=== PATIENT | male | born 1960 | race Two or more races ===

== ENCOUNTER 2018-06-09 14:33 | Emergency (ER) | payer MEDICAID ==
[~2018-06-09] VITALS: Ht 157.5 cm; Wt 69.0 kg
[2018-06-09 15:40] LABS: CLARITY URINE CLEAR (CLEAR); COLOR URINE DARK YELLOW (YELLOW); KETONES URINE NEGATIVE (NEGATIVE); LEUKOCYTE ESTERASE URINE NEGATIVE (NEGATIVE); NITRITE URINE NEGATIVE (NEGATIVE); OCCULT BLOOD URINE 2+ (NEGATIVE); PH URINE 6.5 (4.5-8.0); PROTEIN URINE 2+ (NEGATIVE); SPECIFIC GRAVITY URINE 1.025 (1.005-1.030)
[2018-06-09] MEDS ORDERED: SODIUM CHLORIDE 0.9% 1,000 ML IV ONE ×2 (17:13→21:30)
[2018-06-09 17:44] LABS: BASOPHILS % 0.2 % (0.0-2.0); EOSINOPHILS % 1.3 % (0.0-5.0); HEMATOCRIT. 44.7 % (42.0-52.0); HEMOGLOBIN. 15.4 g/dL (14.0-18.0); LYMPHOCYTES % 42.6 % (20.0-50.0); MEAN CORPUSCULAR HEMOGLOBIN 31.9 pg (28.0-32.0); MEAN CORPUSCULAR VOLUME 92.4 fL (80.0-94.0); MEAN PLATELET VOLUME 9.2 fl (7.4-10.4); MONOCYTES % 8.6 % (2.0-8.0); NEUTROPHILS % 47.3 % (40.0-76.0); PLATELET 145 x1000/uL (130-400); RED BLOOD CELL COUNT 4.83 mill/uL (4.7-6.1); RED CELL DISTRIBUTION WIDTH 14.2 % (11.6-14.6)
[2018-06-09 17:50] LABS: CHLORIDE 109 mEq/L (98-107)
[2018-06-09 17:53] LABS: ETHANOL BLOOD 297 mg/dL
[2018-06-09] MEDS ORDERED: IBUPROFEN 600MG TABLET PO ONE (18:15)
[2018-06-09 23:44] VITALS: BP 121/74
[2018-06-10 10:57] LABS: CANNABINOID URINE SCREEN NEGATIVE (NEGATIVE); METHADONE URINE SCREEN NEGATIVE (NEGATIVE); OPIATES URINE SCREEN NEGATIVE (NEGATIVE); PHENCYCLIDINE URINE SCREEN NEGATIVE (NEGATIVE)
[2018-06-10 10:59] LABS: *AMPHETAMINES SCREEN URINE PRESUMTIVE POSITIVE (NEGATIVE); *BARBITURATES SCREEN URINE NEGATIVE (NEGATIVE); *BENZODIAZEPINES SCREEN URINE NEGATIVE (NEGATIVE); *COCAINE SCREEN URINE NEGATIVE (NEGATIVE)
== END 2018-06-09 23:45 | disposition home or self-care (01) ==
LOC: ER 14:33 → EDBD 14:33 → ER 23:45
DX: F10.129 Alcohol abuse with intoxication, unspecified (principal); Y90.8 Blood alcohol level of 240 mg/100 ml or more; G44.209 Tension-type headache, unspecified, not intractable; E78.00 Pure hypercholesterolemia, unspecified; I10 Essential (primary) hypertension; F17.200 Nicotine dependence, unspecified, uncomplicated
CPT/HCPCS: 36415; 70450; 80053; 80305; 80320; 81003; 85025; 99284; J7030; G0480

== ENCOUNTER 2019-01-14 10:55 | Emergency (ER) | payer BC, MEDICAID ==
[~2019-01-14] VITALS: Ht 165.1 cm; Wt 73.0 kg
[2019-01-14] MEDS ORDERED: ACETAMINOPHEN 325MG TABLET PO ONE (12:00)
[2019-01-14 13:00] VITALS: BP 128/78
== END 2019-01-14 14:35 | disposition home or self-care (01) ==
LOC: ER 10:55
DX: F10.129 Alcohol abuse with intoxication, unspecified (principal); R51 Headache; M54.2 Cervicalgia; M54.9 Dorsalgia, unspecified; I10 Essential (primary) hypertension; Y90.9 Presence of alcohol in blood, level not specified; W01.0XXA Fall on same level from slipping, tripping and stumbling without subsequent striking against object, initial encounter; Y93.89 Activity, other specified; Y92.89 Other specified places as the place of occurrence of the external cause; Y99.8 Other external cause status
CPT/HCPCS: 71045; 72170; 82962; 99284

== ENCOUNTER 2019-03-16 15:20 | Emergency (ER) | payer BC, MEDICAID ==
[~2019-03-16] VITALS: Ht 167.6 cm; Wt 80.0 kg
[2019-03-16 17:53] VITALS: BP 153/100
== END 2019-03-17 01:14 | disposition left against medical advice (07) ==
LOC: ER 15:20
DX: Z53.21 Procedure and treatment not carried out due to patient leaving prior to being seen by health care provider (principal)

== ENCOUNTER 2019-04-30 09:13 | Inpatient (IN) | payer BC ==
[~2019-04-30] VITALS: Ht 165.1 cm; Wt 74.4 kg
[2019-04-30] MEDS ORDERED: SODIUM CHLORIDE 0.9% 1,000 ML IV ONE (12:42)
[2019-04-30] MEDS ORDERED: FOLIC ACID 1 MG, THIAMINE HCL 100 MG, MVI, ADULT NO.1 10 ML in DEXTROSE 5% WATER 1,000 ML IV ONE ×4 (12:45)
[2019-04-30] MEDS ORDERED: LORAZEPAM 2MG/ML CPJ IV ONE (12:45)
[2019-04-30 12:54] LABS: BASOPHILS % 0.2 % (0.0-2.0); HEMATOCRIT. 45.7 % (42.0-52.0); LYMPHOCYTES % 9.5 % (20.0-50.0); MEAN CORPUSCULAR HEMOGLOBIN 32.8 pg (28.0-32.0); MEAN CORPUSCULAR VOLUME 93.6 fL (80.0-94.0); MONOCYTES % 4.8 % (2.0-8.0); NEUTROPHILS % 85.5 % (40.0-76.0); RED BLOOD CELL COUNT 4.88 mill/uL (4.7-6.1); RED CELL DISTRIBUTION WIDTH 13.6 % (11.6-14.6)
[2019-04-30] MEDS ORDERED: KETOROLAC 15MG/ML VIAL IV ONE (13:00)
[2019-04-30 13:06] LABS: CHLORIDE 101 mEq/L (98-107)
[2019-04-30 13:10] LABS: ETHANOL BLOOD < 10 mg/dL
[2019-04-30 13:24] LABS: MEAN PLATELET VOLUME 10.6 fl (7.4-10.4); PLATELET 182 x1000/uL (130-400)
[2019-04-30 14:05] LABS: CLARITY URINE CLEAR (CLEAR); COLOR URINE DARK YELLOW (YELLOW); KETONES URINE 1+ (NEGATIVE); LEUKOCYTE ESTERASE URINE TRACE (NEGATIVE); NITRITE URINE NEGATIVE (NEGATIVE); OCCULT BLOOD URINE NEGATIVE (NEGATIVE); PH URINE >=9.0 (4.5-8.0); PROTEIN URINE 4+ (NEGATIVE)
[2019-04-30 14:22] LABS: METHADONE URINE SCREEN NEGATIVE (NEGATIVE); OPIATES URINE SCREEN NEGATIVE (NEGATIVE); PHENCYCLIDINE URINE SCREEN NEGATIVE (NEGATIVE)
[2019-04-30 14:23] LABS: *AMPHETAMINES SCREEN URINE NEGATIVE (NEGATIVE); *BARBITURATES SCREEN URINE NEGATIVE (NEGATIVE); *BENZODIAZEPINES SCREEN URINE NEGATIVE (NEGATIVE); *COCAINE SCREEN URINE NEGATIVE (NEGATIVE); CANNABINOID URINE SCREEN NEGATIVE (NEGATIVE)
[2019-04-30 22:40] VITALS: BP 149/80
[2019-05-01] VITALS: BP 104/59
[2019-05-01] MEDS ORDERED: CLONIDINE 0.1MG TABLET PO PRN (00:30)
[2019-05-01] MEDS ORDERED: CHLORDIAZEPOXIDE 25MG CAPSULE PO SCH (00:30)
[2019-05-01] MEDS ORDERED: ONDANSETRON HCL 4MG/2ML INJ IV PRN (00:30)
[2019-05-01] MEDS: SODIUM CHLORIDE 0.9% 1,000 ML IV SCH ×2 (01:31→14:01)
[2019-05-01] MEDS: CHLORDIAZEPOXIDE 25MG CAPSULE PO SCH ×4 (01:32→21:37)
[2019-05-01] MEDS: ACETAMINOPHEN 325MG TABLET PO PRN ×3 (01:36→23:05)
[2019-05-01 04:00] VITALS: BP 133/82
[2019-05-01 07:38] LABS: BASOPHILS % 0.3 % (0.0-2.0); EOSINOPHILS % 0.2 % (0.0-5.0); HEMATOCRIT. 42.3 % (42.0-52.0); HEMOGLOBIN. 14.7 g/dL (14.0-18.0); LYMPHOCYTES % 21.4 % (20.0-50.0); MEAN CORPUSCULAR HEMOGLOBIN 32.9 pg (28.0-32.0); MEAN CORPUSCULAR VOLUME 94.8 fL (80.0-94.0); MEAN PLATELET VOLUME 10.5 fl (7.4-10.4); MONOCYTES % 6.1 % (2.0-8.0); PLATELET 143 x1000/uL (130-400); RED BLOOD CELL COUNT 4.46 mill/uL (4.7-6.1); RED CELL DISTRIBUTION WIDTH 13.7 % (11.6-14.6)
[2019-05-01 07:40] LABS: CHLORIDE 106 mEq/L (98-107)
[2019-05-01 08:00] VITALS: BP 157/99
[2019-05-01] MEDS ORDERED: POTASSIUM CHLORIDE 20MEQ TABLET SR PO SCH (08:45)
[2019-05-01] MEDS: THIAMINE HCL 100MG TABLET PO SCH (09:47)
[2019-05-01 12:00] VITALS: BP 148/88
[2019-05-01] MEDS ORDERED: PNEUMOCOCCAL 23-VAL P-SAC VAC 0.5 ML IM ONE (12:00)
[2019-05-01 16:00] VITALS: BP 128/61
[2019-05-01] MEDS: FAMOTIDINE 20MG TABLET PO SCH (18:40)
[2019-05-01 20:00] VITALS: BP 137/89
[2019-05-01] MEDS ORDERED: GUAIFENESIN 600MG ER TABLET PO PRN (20:30)
[2019-05-02] VITALS (7 sets, daily range): BP systolic 136–177; BP diastolic 69–95
[2019-05-02] MEDS: SODIUM CHLORIDE 0.9% 1,000 ML IV SCH ×2 (02:07→13:43)
[2019-05-02] MEDS: ACETAMINOPHEN 325MG TABLET PO PRN ×2 (05:07→10:49)
[2019-05-02] MEDS: CHLORDIAZEPOXIDE 25MG CAPSULE PO SCH ×2 (05:07→13:09)
[2019-05-02] MEDS: THIAMINE HCL 100MG TABLET PO SCH (09:13)
[2019-05-02] MEDS: FAMOTIDINE 20MG TABLET PO SCH (18:44)
[2019-05-02] MEDS ORDERED: L25 MT (18:55)
== END 2019-05-02 22:05 | disposition home or self-care (01) | DRG 897 ==
LOC: ER 09:13 → 5WST 14:45 → ENRESERV 21:57 → 5WST 05-01 03:05
PROVIDERS: ADMIT Family Medicine; ATTEND Family Medicine
DX: F10.239 Alcohol dependence with withdrawal, unspecified (principal); E87.6 Hypokalemia; I11.9 Hypertensive heart disease without heart failure; Z91.19 Patient's noncompliance with other medical treatment and regimen
CPT/HCPCS: 36415; 71045; 80048; 80053; 80305; 80320; 81003; 83735; 83880; 84484; 85025; 90732; 93005; 96365; 99285; J1885; J2060; J3411; J3490; J7030; J7070; G0480

== ENCOUNTER 2019-08-08 08:19 | Inpatient (IN) | payer BC ==
[~2019-08-08] VITALS: Ht 165.1 cm; Wt 62.6 kg
[~2019-08-08 08:19] MED LIST: L25 MT
[2019-08-08] MEDS ORDERED: CHLORDIAZEPOXIDE 25MG CAPSULE PO ONE (09:00)
[2019-08-08 09:08] LABS: BASOPHILS % 0.2 % (0.0-2.0); HEMATOCRIT. 40.9 % (42.0-52.0); HEMOGLOBIN. 14.7 g/dL (14.0-18.0); MEAN CORPUSCULAR HEMOGLOBIN 33.7 pg (28.0-32.0); MEAN PLATELET VOLUME 11.4 fl (7.4-10.4); NEUTROPHILS % 82.8 % (40.0-76.0); PLATELET 128 x1000/uL (130-400); RED BLOOD CELL COUNT 4.35 mill/uL (4.7-6.1); RED CELL DISTRIBUTION WIDTH 14.4 % (11.6-14.6)
[2019-08-08 09:46] LABS: CHLORIDE 100 mEq/L (98-107)
[2019-08-08 09:49] LABS: ETHANOL BLOOD < 10 mg/dL
[2019-08-08] MEDS ORDERED: ACETAMINOPHEN 325MG TABLET PO STA (12:06)
[2019-08-08 12:18] LABS: CLARITY URINE CLEAR (CLEAR); COLOR URINE YELLOW (YELLOW); KETONES URINE TRACE (NEGATIVE); LEUKOCYTE ESTERASE URINE NEGATIVE (NEGATIVE); NITRITE URINE NEGATIVE (NEGATIVE); OCCULT BLOOD URINE NEGATIVE (NEGATIVE); PH URINE 8.5 (4.5-8.0); PROTEIN URINE 1+ (NEGATIVE)
[2019-08-08 12:38] LABS: CANNABINOID URINE SCREEN NEGATIVE (NEGATIVE); METHADONE URINE SCREEN NEGATIVE (NEGATIVE); OPIATES URINE SCREEN NEGATIVE (NEGATIVE)
[2019-08-08 12:41] LABS: *BENZODIAZEPINES SCREEN URINE NEGATIVE (NEGATIVE); PHENCYCLIDINE URINE SCREEN NEGATIVE (NEGATIVE)
[2019-08-08 12:42] LABS: *BARBITURATES SCREEN URINE NEGATIVE (NEGATIVE)
[2019-08-08 12:43] LABS: *AMPHETAMINES SCREEN URINE NEGATIVE (NEGATIVE)
[2019-08-08 12:46] LABS: *COCAINE SCREEN URINE NEGATIVE (NEGATIVE)
[2019-08-08] MEDS ORDERED: ONDANSETRON HCL 4MG/2ML INJ IV PRN (14:45)
[2019-08-08] MEDS ORDERED: MAGNESIUM/ALUMINUM HYDROXIDE/SIMETHICONE 30ML UDC PO PRN (14:45)
[2019-08-08] MEDS ORDERED: CLONIDINE 0.1MG TABLET PO PRN (14:45)
[2019-08-08] MEDS ORDERED: DOCUSATE SODIUM 100MG CAPSULE PO PRN (14:45)
[2019-08-08] MEDS ORDERED: ACETAMINOPHEN 325MG TABLET PO PRN (14:45)
[2019-08-08] MEDS ORDERED: HYDROCODONE/ACETAMINOPHEN 5/325MG TABLET PO PRN (14:45)
[2019-08-08] MEDS: SODIUM CHLORIDE 0.45% 1,000 ML IV SCH (14:57)
[2019-08-08] MEDS: MULTIVITAMINS,THER W-MINERALS TABLET PO SCH (15:02)
[2019-08-08] MEDS: LORAZEPAM 2MG/ML CPJ IV PRN (16:38)
[2019-08-08 17:08] VITALS: BP 148/93
[2019-08-08 17:55] VITALS: BP 148/93
[2019-08-08 20:00] VITALS: BP 130/79
[2019-08-08] MEDS: CHLORDIAZEPOXIDE 25MG CAPSULE PO SCH (21:05)
[2019-08-08 23:57] LABS: CREATINE KINASE 446 IU/L (39-308)
[2019-08-08 23:58] LABS: CREATINE KINASE MB FRACTION 4.8 ng/mL (0.5-3.6)
[2019-08-09] VITALS: BP 159/79
[2019-08-09] MEDS: LORAZEPAM 2MG/ML CPJ IV PRN (02:56)
[2019-08-09 04:00] VITALS: BP 147/82
[2019-08-09] MEDS: SODIUM CHLORIDE 0.45% 1,000 ML IV SCH (05:01)
[2019-08-09] MEDS: CHLORDIAZEPOXIDE 25MG CAPSULE PO SCH ×2 (05:20→13:41)
[2019-08-09 06:50] LABS: BASOPHILS % 0.2 % (0.0-2.0); EOSINOPHILS % 0.3 % (0.0-5.0); HEMATOCRIT. 40.5 % (42.0-52.0); HEMOGLOBIN. 14.3 g/dL (14.0-18.0); LYMPHOCYTES % 22.5 % (20.0-50.0); MEAN CORPUSCULAR HEMOGLOBIN 33.3 pg (28.0-32.0); MEAN CORPUSCULAR VOLUME 94.1 fL (80.0-94.0); MEAN PLATELET VOLUME 10.9 fl (7.4-10.4); MONOCYTES % 6.1 % (2.0-8.0); NEUTROPHILS % 70.9 % (40.0-76.0); PLATELET 101 x1000/uL (130-400); RED CELL DISTRIBUTION WIDTH 13.9 % (11.6-14.6)
[2019-08-09 06:57] LABS: CHLORIDE 103 mEq/L (98-107)
[2019-08-09 07:08] LABS: CREATINE KINASE 381 IU/L (39-308)
[2019-08-09 07:13] LABS: CREATINE KINASE MB FRACTION 3.9 ng/mL (0.5-3.6)
[2019-08-09 08:00] VITALS: BP 141/80
[2019-08-09] MEDS: MULTIVITAMINS,THER W-MINERALS TABLET PO SCH (08:30)
[2019-08-09] MEDS ORDERED: AMLODIPINE 10MG TABLET PO SCH (09:00)
[2019-08-09] MEDS ORDERED: NITROGLYCERIN 0.4MG TABLET SL SL PRN (11:15)
[2019-08-09 12:00] VITALS: BP 132/75
[2019-08-09] MEDS ORDERED: POTASSIUM CHLORIDE 20MEQ TABLET SR PO NR (13:15)
[2019-08-09 16:00] VITALS: BP 129/81
== END 2019-08-09 17:00 | disposition home or self-care (01) | DRG 313 ==
LOC: ER 08:19 → MICUSO 10:29 → 6WST 15:55
PROVIDERS: ADMIT Hospitalist; ATTEND Hospitalist
DX: R07.89 Other chest pain (principal); E43 Unspecified severe protein-calorie malnutrition; F10.239 Alcohol dependence with withdrawal, unspecified; E87.6 Hypokalemia; Z21 Asymptomatic human immunodeficiency virus [HIV] infection status; I10 Essential (primary) hypertension; Z68.23 Body mass index [BMI] 23.0-23.9, adult; Z79.899 Other long term (current) drug therapy
CPT/HCPCS: 36415; 71045; 80053; 80305; 80320; 81003; 82550; 82553; 83880; 84484; 85025; 93005; 96374; 97162; 99285; J2060; G0480

== ENCOUNTER 2021-12-11 11:15 | Emergency (ER) | payer OTHER, BC ==
[~2021-12-11] VITALS: Ht 170.2 cm; Wt 78.0 kg
[2021-12-11 13:00] LABS: BASOPHILS % 0.3 % (0.0-2.0); EOSINOPHILS % 0.2 % (0.0-5.0); HEMATOCRIT. 45.5 % (42.0-52.0); HEMOGLOBIN. 15.7 g/dL (14.0-18.0); LYMPHOCYTES % 31.7 % (20.0-50.0); MEAN CORPUSCULAR VOLUME 95.8 fL (80.0-94.0); MEAN PLATELET VOLUME 9.6 fl (7.4-10.4); MONOCYTES % 10.6 % (2.0-8.0); NEUTROPHILS % 57.2 % (40.0-76.0); PLATELET 158 x1000/uL (130-400); RED BLOOD CELL COUNT 4.74 mill/uL (4.7-6.1); RED CELL DISTRIBUTION WIDTH 12.9 % (11.6-14.6)
[2021-12-11 13:07] LABS: CHLORIDE 102 mEq/L (98-107)
[2021-12-11 13:26] LABS: PROTHROMBIN TIME 10.9 sec (9.6-11.0)
[2021-12-11 16:00] VITALS: BP 159/70
== END 2021-12-11 16:50 ==
LOC: ER 11:15
DX: R07.89 Other chest pain (principal); I10 Essential (primary) hypertension; B20 Human immunodeficiency virus [HIV] disease; Z02.79 Encounter for issue of other medical certificate
CPT/HCPCS: 36415; 71045; 80053; 84484; 85025; 93005; 99285

== ENCOUNTER 2022-05-23 11:55 | Emergency (ER) | payer BC, MEDICAID, OTHER ==
[~2022-05-23] VITALS: Ht 165.1 cm; Wt 77.0 kg
[2022-05-23 12:10] VITALS: BP 115/74
== END 2022-05-23 15:47 | disposition left against medical advice (07) ==
LOC: ER 12:53
DX: Z53.21 Procedure and treatment not carried out due to patient leaving prior to being seen by health care provider (principal); I49.9 Cardiac arrhythmia, unspecified
CPT/HCPCS: 93005

== ENCOUNTER 2023-06-30 12:21 | Inpatient (IN) | payer MEDICAID ==
[~2023-06-30] VITALS: Ht 160 cm; Wt 70.3 kg
[~2023-06-30 12:21] MED LIST changes: +CHLO25CA11 MT; -L25 MT
[2023-06-30 14:00] LABS: BASOPHILS % 0.3 % (0.0-2.0); EOSINOPHILS % 5.8 % (0.0-5.0); HEMATOCRIT. 32.6 % (42.0-52.0); HEMOGLOBIN. 11.2 g/dL (14.0-18.0); LYMPHOCYTES % 15.7 % (20.0-50.0); MEAN CORPUSCULAR HEMOGLOBIN 31.6 pg (28.0-32.0); MEAN CORPUSCULAR HGB CONC 34.4 g/dL (31.0-37.0); MEAN PLATELET VOLUME 9.2 fl (7.4-10.4); MONOCYTES % 9.1 % (2.0-8.0); NEUTROPHILS % 69.1 % (40.0-76.0); PLATELET 183 x1000/uL (130-400); RED BLOOD CELL COUNT 3.54 mill/uL (4.7-6.1); RED CELL DISTRIBUTION WIDTH 15.5 % (11.6-14.6)
[2023-06-30 14:26] LABS: ALANINE AMINOTRANSFERASE 21 IU/L (10-49); ALBUMIN 3.2 g/dL (3.2-4.8); ASPARTATE AMINOTRANSFERASE 31 IU/L (<34); BILIRUBIN TOTAL 0.4 mg/dL (0.1-1.0); CALCIUM 7.9 mg/dL (8.7-10.4); CARBON DIOXIDE 22 mEq/L (21-32); CHLORIDE 109 mEq/L (98-107); CREATININE 0.9 mg/dL (0.6-1.3); GLUCOSE 119 mg/dL (70-105); POTASSIUM 2.9 mEq/L (3.5-5.1); SODIUM 137 mEq/L (136-145); TROPONIN I HIGH SENSITIVITY 11 ng/L (3.0-53); UREA NITROGEN BLOOD 9 mg/dL (9-23)
[2023-06-30 14:32] LABS: ETHANOL BLOOD < 10 mg/dL (<10)
[2023-06-30] MEDS ORDERED: POTASSIUM CHLORIDE 20MEQ/PACKET PO ONE (15:30)
[2023-06-30 17:28] VITALS: O2SAT 97
[2023-06-30] MEDS ORDERED: ESCI-7 PO (18:27)
[2023-06-30] MEDS ORDERED: FOLI-43 PO (18:27)
[2023-06-30] MEDS ORDERED: MIRT-89 PO (18:27)
[2023-06-30] MEDS: POTASSIUM CHLORIDE 20MEQ/PACKET PO NR (18:39)
[2023-06-30 20:00] VITALS: BP 117/69; PULSE 68; RESP 19; TEMP 100.2
[2023-06-30 21:00] VITALS: BP 117/69; PULSE 70; RESP 18; TEMP 100.2
[2023-06-30] MEDS ORDERED: ACETAMINOPHEN 325MG TABLET PO PRN (21:15)
[2023-06-30] MEDS ORDERED: DIPHENHYDRAMINE 50MG/ML VIAL IV PRN (21:15)
[2023-06-30] MEDS: MVI, ADULT NO.1 10 ML, FOLIC ACID 1 MG, THIAMINE HCL 100 MG in SODIUM CHLORIDE 0.9% 1,0... IV ONE (23:00)
[2023-06-30] MEDS: POTASSIUM CHLORIDE 20MEQ TABLET SR PO NR (23:08)
[2023-07-01] VITALS: BP 122/72; PULSE 74; RESP 19; TEMP 99.8
[2023-07-01 00:57] LABS: VITAMIN B12 SERUM 336 pg/mL (211-911)
[2023-07-01 04:00] VITALS: BP 121/74; PULSE 69; RESP 19; TEMP 98.9
[2023-07-01] MEDS: ACETAMINOPHEN 325MG TABLET PO PRN (04:57)
[2023-07-01 08:00] VITALS: BP 111/63; PULSE 64; RESP 17; TEMP 98.1
[2023-07-01 11:58] VITALS: BP 108/63; PULSE 54; RESP 18; TEMP 98.6
[2023-07-01 16:00] VITALS: BP 111/60; PULSE 52; RESP 18; TEMP 98.6
[2023-07-01 20:00] VITALS: BP 134/93; PULSE 69; RESP 20; TEMP 98.1
[2023-07-02] VITALS: BP 126/73; PULSE 75; RESP 20; TEMP 96.6
[2023-07-02 04:00] VITALS: BP 149/65; PULSE 59; RESP 20; TEMP 100.2
[2023-07-02 07:27] LABS: CALCIUM 8.3 mg/dL (8.7-10.4); CARBON DIOXIDE 21 mEq/L (21-32); CHLORIDE 105 mEq/L (98-107); CREATININE 0.8 mg/dL (0.6-1.3); GLUCOSE 74 mg/dL (70-105); POTASSIUM 4.5 mEq/L (3.5-5.1); SODIUM 132 mEq/L (136-145); UREA NITROGEN BLOOD 9 mg/dL (9-23)
[2023-07-02 08:00] VITALS: BP 108/61; PULSE 72; RESP 20; TEMP 98.2
[2023-07-02 11:42] LABS: BASOPHILS % 0.6 % (0.0-2.0); DIFFERENTIAL COMMENT 0; HEMATOCRIT. 32.8 % (42.0-52.0); HEMOGLOBIN. 11.2 g/dL (14.0-18.0); LYMPHOCYTES % 22.3 % (20.0-50.0); MEAN CORPUSCULAR HEMOGLOBIN 31.7 pg (28.0-32.0); MEAN CORPUSCULAR HGB CONC 34.1 g/dL (31.0-37.0); MEAN CORPUSCULAR VOLUME 93.2 fL (80.0-94.0); MEAN PLATELET VOLUME 10.2 fl (7.4-10.4); MONOCYTES % 11.1 % (2.0-8.0); PLATELET 184 x1000/uL (130-400); RED BLOOD CELL COUNT 3.52 mill/uL (4.7-6.1); RED CELL DISTRIBUTION WIDTH 15.1 % (11.6-14.6); WHITE BLOOD COUNT 5.2 x1000/uL (4.5-11.0)
[2023-07-02 12:00] VITALS: BP 111/68; PULSE 68; RESP 18; TEMP 98
[2023-07-02 16:00] VITALS: BP 119/71; PULSE 75; RESP 19; TEMP 97.5
[2023-07-02 20:00] VITALS: BP 115/64; PULSE 78; RESP 18; TEMP 97.8
[2023-07-03] VITALS: BP 131/78; PULSE 72; RESP 18; TEMP 100.2
[2023-07-03 04:00] VITALS: BP 130/63; PULSE 70; RESP 19; TEMP 97.8
[2023-07-03 08:00] VITALS: BP 102/45; PULSE 64; RESP 19; TEMP 97.7
[2023-07-03 11:51] VITALS: BP 102/45; PULSE 64; TEMP 97.7
== END 2023-07-03 13:43 | disposition home or self-care (01) | DRG 425 ==
LOC: ER 13:01 → 5WST 17:25 → EDBEDREQ 17:37 → 6EST 20:25
PROVIDERS: ADMIT Internal Medicine; ATTEND Internal Medicine
DX: E87.6 Hypokalemia (principal); F42.4 Excoriation (skin-picking) disorder; R32 Unspecified urinary incontinence; Z59.01 Sheltered homelessness
CPT/HCPCS: 36415; 71045; 80048; 80053; 80320; 82607; 83735; 83880; 84443; 84484; 85025; 93005; 97161; 97166; 99285; J3411; J3490; J7030; G0480

== ENCOUNTER 2023-07-29 21:45 | Emergency (ER) | payer MEDICAID, OTHER ==
[~2023-07-29] VITALS: Ht 170.2 cm; Wt 68.0 kg
[~2023-07-29 21:45] MED LIST changes: -CHLO25CA11 MT; +ESCI-7 PO; +FOLI-43 PO; +MIRT-89 PO
[2023-07-29 21:48] VITALS: O2SAT 99
[2023-07-29 23:03] LABS: BASOPHILS % 0.5 % (0.0-2.0); EOSINOPHILS % 3.4 % (0.0-5.0); HEMATOCRIT. 39.8 % (42.0-52.0); HEMOGLOBIN. 13.7 g/dL (14.0-18.0); LYMPHOCYTES % 35.5 % (20.0-50.0); MEAN CORPUSCULAR HEMOGLOBIN 32.5 pg (28.0-32.0); MEAN CORPUSCULAR HGB CONC 34.6 g/dL (31.0-37.0); MEAN PLATELET VOLUME 9.2 fl (7.4-10.4); MONOCYTES % 9.7 % (2.0-8.0); NEUTROPHILS % 50.9 % (40.0-76.0); PLATELET 204 x1000/uL (130-400); RED BLOOD CELL COUNT 4.23 mill/uL (4.7-6.1); RED CELL DISTRIBUTION WIDTH 14.7 % (11.6-14.6)
[2023-07-29 23:06] LABS: CHLORIDE 106 mEq/L (98-107); POTASSIUM 3.7 mEq/L (3.5-5.1); SODIUM 140 mEq/L (136-145)
[2023-07-29 23:07] LABS: CARBON DIOXIDE 23 mEq/L (21-32)
[2023-07-29 23:08] LABS: CALCIUM 9.2 mg/dL (8.7-10.4)
[2023-07-29 23:12] LABS: CREATININE 0.9 mg/dL (0.6-1.3); GLUCOSE 84 mg/dL (70-105)
[2023-07-29 23:13] LABS: ETHANOL BLOOD 123 mg/dL (<10); TROPONIN I HIGH SENSITIVITY 9 ng/L (3.0-53); UREA NITROGEN BLOOD < 5 mg/dL (9-23)
[2023-07-29 23:14] LABS: ALANINE AMINOTRANSFERASE 20 IU/L (10-49); ALBUMIN 3.8 g/dL (3.2-4.8); ASPARTATE AMINOTRANSFERASE 45 IU/L (<34)
[2023-07-29 23:15] LABS: BILIRUBIN TOTAL 0.4 mg/dL (0.1-1.0); PROTEIN TOTAL 8.8 g/dL (6.0-8.3)
[2023-07-29] MEDS: ACETAMINOPHEN 325MG TABLET PO STA (23:16)
[2023-07-29 23:24] LABS: CLARITY URINE CLEAR (CLEAR); COLOR URINE YELLOW (YELLOW); GLUCOSE URINE NEGATIVE (NEGATIVE); KETONES URINE NEGATIVE (NEGATIVE); LEUKOCYTE ESTERASE URINE NEGATIVE (NEGATIVE); NITRITE URINE NEGATIVE (NEGATIVE); OCCULT BLOOD URINE NEGATIVE (NEGATIVE); PH URINE 7.5 (4.5-8.0); PROTEIN URINE 1+ (NEGATIVE)
[2023-07-29 23:43] LABS: BACTERIA URINE 1+; RBC URINE 0-2 /hpf (0-2); SQUAMOUS EPITHELIAL CELL URINE 1+ /lpf (RARE/1+); WBC URINE 0-2 /hpf (0-2)
[2023-07-29 23:44] LABS: *AMPHETAMINES SCREEN URINE NEGATIVE (NEGATIVE); *BARBITURATES SCREEN URINE NEGATIVE (NEGATIVE); *BENZODIAZEPINES SCREEN URINE NEGATIVE (NEGATIVE); *COCAINE SCREEN URINE NEGATIVE (NEGATIVE); METHADONE URINE SCREEN NEGATIVE (NEGATIVE); OPIATES URINE SCREEN NEGATIVE (NEGATIVE)
[2023-07-29 23:45] LABS: CANNABINOID URINE SCREEN NEGATIVE (NEGATIVE); ECSTASY MDMA SCREEN URINE NEGATIVE (NEGATIVE); PHENCYCLIDINE URINE SCREEN NEGATIVE (NEGATIVE)
[2023-07-29] MEDS ORDERED: ACET-2708 MT (23:45)
[2023-07-30 00:20] VITALS: BP 136/82; PULSE 70; RESP 18; TEMP 97.9
[2023-07-30] MEDS ORDERED: ACET-2708 MT (09:09)
== END 2023-07-30 00:22 | disposition home or self-care (01) ==
LOC: ER 21:52
DX: R05.9 Cough, unspecified (principal); R51.9 Headache, unspecified; H54.40 Blindness, one eye, unspecified eye; I10 Essential (primary) hypertension
CPT/HCPCS: 36415; 71045; 80053; 80305; 80320; 81003; 84484; 85025; 93005; 99285; G0480

== ENCOUNTER 2023-07-30 07:54 | Emergency (ER) | payer MEDICAID, OTHER ==
[~2023-07-30] VITALS: Ht 162.6 cm; Wt 70.4 kg
[~2023-07-30 07:54] MED LIST changes: +ACET-2708 MT
[2023-07-30 08:12] VITALS: O2SAT 100
[2023-07-30] MEDS: ACETAMINOPHEN 325MG TABLET PO STA (08:43)
[2023-07-30] MEDS ORDERED: ACET-2708 MT (09:09)
[2023-07-30 09:47] VITALS: BP 148/98; PULSE 78; RESP 18; TEMP 98.2
== END 2023-07-30 09:49 | disposition home or self-care (01) ==
LOC: ER 07:54
DX: M79.10 Myalgia, unspecified site (principal)
CPT/HCPCS: 99282